=== PATIENT | female | born 1995 | race Caucasian/White ===

== ENCOUNTER 2024-03-25 16:50 | Emergency (ER) | payer OTHER, SELFPAY ==
--- NOTE | 2024-03-25 17:05 | ED_ITS ---
HPI - General Adult General Chief complaint: Fever Stated complaint: fever, bodyaches Time Seen by Provider: 03/25/24 17:41 Source: patient and family Mode of arrival: ambulatory Limitations: no limitations History of Present Illness ED Provider: YOSHI Orr HPI narrative: 28-year-old female history of obesity presenting to the emergency department with fatigue, malaise, myalgias and fevers for the day. Reports multiple sick contacts at home sick with similar symptoms. She reports this came on suddenly and she just feels overall unwell. She denies chest pain, shortness of breath, nausea, vomiting, abdominal pain, headache, vision changes, dizziness, weakness, sore throat, cough, changes in urinary or bowel habits. Related Data Previous Rx's ?Medication ?Instructions ?Recorded ondansetron HCl 4 mg tablet 4 mg PO Q8H PRN nausea and 03/25/24 vomiting #14 tabs Allergies Allergy/AdvReac Type Severity Reaction Status Date / Time No Known Allergies Allergy Verified 03/25/24 17:06 Review of Systems Review of Systems: Yes all other systems are reviewed and are negative [facility] Past Medical History Attestation statement: The following information was validated with the patient. Source: old records reviewed and nursing notes reviewed Social History Social History Advance Directives: No Advance Directives Information Provided: No Do you have a plan to hurt others: No Plan Physical Exam ED Vital Signs: Vital Signs - 24 hr 03/25/24 17:06 03/25/24 17:56 Temperature 99.7 F 101.5 F H Pulse Rate 136 H 130 H Respiratory Rate 16 20 Blood Pressure 125/77 127/76 Pulse Oximetry 97 99 Oxygen Delivery Method Room Air Room Air BMI result Body Mass Index 32.9 Patient initially tachycardic with a temporal temperature of 99.7 degrees F on repeat vital signs her heart rate is 130 in her temperature is a 101.5 degrees. Tachycardia likely secondary to fever. Appearance: Alert.? Oriented X3.? No acute distress.? Head: Normocephalic, atraumatic, no step-offs or deformities Eyes: Pupils equal, round and reactive to light.? ENT: Pharynx normal.? Neck: Normal inspection.? Neck supple.? CVS: Normal heart rate and rhythm.? Pulses normal.? Respiratory: No respiratory distress.? Breath sounds normal.? Abdomen: Soft and nontender.? Skin: Skin warm and dry.? Normal skin color.? Normal skin turgor.? Extremities: No lower extremity edema.? No calf ttp. 5/5 strength to bilateral upper and lower extremities Neuro: Oriented X 3.? No motor deficit.? No sensory deficit. CN 2-12 intact Course Course Course Narrative: This is an RME performed by Chuy Moody CNP: Additional HPI, ROS, PE not included below will be deferred to primary provider. Patient is a 28-year-old female who presents emergency department for evaluation, Onset today with fever and body aches, son is ill with fever as well as vomiting and diarrhea. Patient is notably tachycardic pulse of 136, denies chest pain or palpitations, admits to a history of childhood asthma did not use any albuterol inhaler today. Afebrile. Plan: Viral serologies, EKG Reevaluation(s) Reevaluation #1: Patient positive for influenza. Will treat patient with supportive measures. Educated her on these. Will outlined them on discharge Educated patient on diagnosis and treatment plan, answered all question, patient verbalizes understanding. At this time patient will be discharged home, advised to return with new or worsening symptoms. Educated on worrisome signs and symptoms and when to return. At this time I feel comfortable discharge home. Time: 18:23 Medications Administered Discontinued Medications Generic Name Dose Route Start Last Admin Trade Name Freq PRN Reason Stop Dose Admin Acetaminophen 975 mg 03/25/24 17:45 03/25/24 17:48 Acetaminophen 325 Mg Tablet PO 03/25/24 17:46 975 mg ONCE ONE Administration Medical Decision Making Medical Decision Making [facility] Narrative: 28-year-old female presents with viral symptoms. Multiple sick contacts. Physical exam benign History and physical exam concerning for flu versus COVID versus RSV versus norovirus versus other viral illnesses. Unlikely metabolic derangements. Unlikely pneumonia, UTI. Plan viral testing. EKG was done because of tachycardia however tachycardia likely secondary to fever I do not suspect ACS, PE, dissection Differential Diagnosis Differential Diagnoses: The differential diagnosis associated with the pre sentation includes (History and physical exam concerning for flu versus COVID versus RSV versus norovirus versus other viral illnesses. Unlikely metabolic derangements. Unlikely pneumonia, UTI.) Admission/Observation Consideration of admission/observation: Escalation of care including admission/observation considered Lab Data MDM Lab Attestation statement: I reviewed the patient's lab results. Labs: Lab Results 03/25/24 Range/Units 17:12 Influenza Type A (PCR) POSITIVE A (Negative) Influenza Type B (PCR) NEGATIVE (Negative) RSV RNA Qual (PCR) NEGATIVE (Negative) SARS-CoV-2 RNA (RT-PCR) NEGATIVE (Negative) Prescription Management I did speak to patient about Tamiflu however she is not interested at this time. If she changes her mind she can speak to her PCP a pharmacist about this. Chronic Conditions Patient?s care impacted by: Other (obesity) Discharge Plan Discharge Clinical Impression: Influenza A Patient Disposition: Home, Self-Care Instructions: Influenza (ED) Additional Instructions: Take your medications as prescribed. If you were prescribed antibiotics today, it is important that you take your medication to their entirety, do not skip any doses, do not finish them early. Follow-up with your primary care provider this week. Return to the emergency department with new or worsening symptoms. In case of emergency call 911 Drink plenty of fluids. You can take ibuprofen every 6 hours Tylenol every 4 hours as needed for fever, pain or discomfort Zofran sent for nausea Prescriptions: New ondansetron HCl 4 mg tablet 4 mg PO Q8H PRN (Reason: nausea and vomiting) Qty: 14 0RF Referrals: Miriam Gunderson [employer] OPERATOR [Primary Care Provider] - 2 days Stand Alone Forms: Work/School Release Print Language: Serbian
[2024-03-25 17:06] VITALS: BP 125/77; PULSE 136; RESP 16; TEMP 37.6; O2SAT 97; BMI 32.9
--- NOTE | 2024-03-25 17:08 | ECG_ITS ---
Test Reason : TACHYCARDIA Blood Pressure : */* mmHG Vent. Rate : 133 BPM Atrial Rate : 133 BPM P-R Int : 136 ms QRS Dur : 74 ms QT Int : 296 ms P-R-T Axes : 20 -37 29 degrees QTcB Int : 440 ms Sinus tachycardia Left axis deviation Inferior infarct , age undetermined Cannot rule out Anterior infarct , age undetermined Abnormal ECG No previous ECGs available Referred By: Terri Moody Electronically Signed By: MICHAEL WOODY
[2024-03-25] MEDS: Acetaminophen 325 MG TABLET 975 MG PO (17:48)
[2024-03-25 17:56] VITALS: BP 127/76; PULSE 130; RESP 20; TEMP 38.6; O2SAT 99
[2024-03-25 18:02] LABS: Influenza A PCR POSITIVE (Negative); Influenza B PCR NEGATIVE (Negative); Resp Syncy Virus RNA Qual PCR NEGATIVE (Negative); SARS COV2 PCR INHOUSE NEGATIVE (Negative)
[2024-03-25 18:33] VITALS: BP 127/76; PULSE 130; RESP 20; TEMP 38.6; O2SAT 99
--- NOTE | 2024-03-25 18:34 | PC.NURSE ---
pt tolerated po, drinking juice, skin wpd. teaching done and inst reviewed
== END 2024-03-25 18:35 | disposition home or self-care (01) ==
PROVIDERS: Nurse Practitioner Family; Emergency Provider Emergency Medicine; PCP Hospitalist
DX: J10.1 Influenza due to other identified influenza virus with other respiratory manifestations (principal); R50.9 Fever, unspecified; M79.10 Myalgia, unspecified site; R00.0 Tachycardia, unspecified; Z03.818 Encounter for observation for suspected exposure to other biological agents ruled out
CPT/HCPCS: 0241U; 93005; 99284

== ENCOUNTER → 2024-03-25 17:08 | Outpatient (BNV) | payer OTHER, SELFPAY | PROVIDERS: Emergency Provider Emergency Medicine; PCP Hospitalist; Visit Provider Internal Medicine | DX: R00.0 Tachycardia, unspecified (principal); R94.31 Abnormal electrocardiogram [ECG] [EKG] | CPT/HCPCS: 93010 ==